=== PATIENT | female | born 1935 | race Caucasian/White ===

== ENCOUNTER 2018-04-11 15:11 | Emergency (ER) | payer MEDICARE, BC ==
[~2018-04-11] VITALS: Ht 154.9 cm; Wt 61.2 kg
[~2018-04-11 15:11] MED LIST: CELE200 PO; DIALYVITE 8001 EACH; ENOX30I SQ; ERGO50000; HYDACE5 PO; HYDACE5325 PO; ONE DAILY FOR1 EACH; OXYACE5T PO; PROM25 PO
[2018-04-11 16:00] LABS: Alanine Aminotransfer (ALT/SGP 19 U/L (12-78); Albumin, Blood 4.1 g/dL (3.4-5.0); Albumin/Globulin Ratio 1.3 (0.8-1.8); Alk Phos 96 U/L (50-136); Anion Gap 5 mmol/L (6-16); Aspartate Aminotrans (AST/SGOT 25 U/L (12-37); Bilirubin, Total 0.4 mg/dL (0.1-1.0); Blood Urea Nitrogen 14 mg/dL (8-24); Bun/Creatinine Ratio 16.2 (12.0-20.0); CO2, Blood 26 mmol/L (21-32); Calcium, Blood 9.2 mg/dL (8.5-10.1); Chloride, Blood 106 mmol/L (98-108); Creatinine, Blood 0.87 mg/dL (0.40-1.00); Globulin, Blood 3.2 g/dL (2.2-4.0); Glomerular Filtration Rate >60 (60-); Glucose, Blood 95 mg/dL (70-99); Potassium, Blood 4.5 mmol/L (3.5-5.5); Sodium, Blood 137 mmol/L (136-145); Total Protein, Blood 7.3 g/dL (6.4-8.2); Troponin I <0.015 ng/mL (0.000-0.040)
[2018-04-11 16:39] LABS: BASOPHILS ABSOLUTE AUTO 0.01 K/mm3 (0.00-0.23); BASOPHILS PERCENT AUTO 0 % (0-2); EOSINOPHILS ABSOLUTE AUTO 0.06 K/mm3 (0.00-0.68); EOSINOPHILS PERCENT AUTO 2 % (0-6); Hematocrit 42.3 % (33.0-51.0); Hemoglobin 13.3 g/dL (11.5-16.0); IMMATURE GRAN ABSOLUTE AUTO 0.02 K/mm3 (0.00-0.10); IMMATURE GRAN PERCENT AUTO 1 % (0-1); LYMPHOCYTES ABSOLUTE AUTO 0.95 K/mm3 (0.84-5.20); LYMPHOCYTES PERCENT AUTO 26 % (21-46); MONOCYTES ABSOLUTE AUTO 0.15 K/mm3 (0.16-1.47); MONOCYTES PERCENT AUTO 4 % (4-13); Mean Corpuscular HGB Conc 31.4 g/dL (31.5-36.5); Mean Corpuscular Volume 96 fL (80-100); NEUTROPHILS ABSOLUTE AUTO 2.42 K/mm3 (1.96-9.15); NEUTROPHILS PERCENT AUTO 67 % (41-73); RDW Coefficient Variation 12.8 % (11.7-14.2); RDW Standard Deviation 45.2 fL (35.1-46.3); Red Blood Cell Count 4.43 M/mm3 (3.80-5.20); White Blood Cell Count 3.61 K/mm3 (4.00-11.30)
[2018-04-11 16:45] LABS: Mean Platelet Volume 12.5 fL (9.1-12.4); Platelet Count 62 K/mm3 (150-400)
== END 2018-04-11 18:12 | disposition home or self-care (01) ==
LOC: ER 15:11
PROVIDERS: Emergency Medicine
DX: R55 Syncope and collapse (principal); S40.012A Contusion of left shoulder, initial encounter; S80.02XA Contusion of left knee, initial encounter; W18.30XA Fall on same level, unspecified, initial encounter; Z88.5 Allergy status to narcotic agent; Z79.899 Other long term (current) drug therapy; Z87.891 Personal history of nicotine dependence
CPT/HCPCS: 36415; 71046; 73030; 73564; 80053; 84484; 85025; 93005; 93010; 96374; 99284-25; J2405

== ENCOUNTER 2020-11-13 15:40 | Emergency (ER) | payer MEDICARE, BC ==
[~2020-11-13] VITALS: Ht 157.5 cm; Wt 58.1 kg
[2020-11-13] MEDS ORDERED: ONDA4 PO (16:35)
== END 2020-11-13 17:44 | disposition home or self-care (01) ==
LOC: ER 15:40
DX: U07.1 COVID-19 (principal); Z87.891 Personal history of nicotine dependence; Z88.5 Allergy status to narcotic agent; Z79.899 Other long term (current) drug therapy
CPT/HCPCS: 96374; 99283-25; J2405; J7030; M0243; Q0243

== ENCOUNTER 2020-11-15 00:06 | Emergency (ER) | payer MEDICARE, BC ==
[~2020-11-15] VITALS: Ht 157.5 cm; Wt 58.1 kg
[~2020-11-15 00:06] MED LIST changes: +ONDA4 PO
[2020-11-15] MEDS ORDERED: AZIT250 PO (00:36)
[2020-11-15] MEDS ORDERED: ONDA4ODT MM (00:37)
[2020-11-15] MEDS ORDERED: IVERMECTIN3 MG PO (00:37)
[2020-11-15 00:55] LABS: Calcium, Ionized (POC) 1.14 mmol/L (1.10-1.46); Chloride (POC) 80 mmol/L (98-108); Creatinine (POC) 0.5 mg/dL (0.6-1.0); Glucose (ISTAT POC) 88 mg/dL (70-99); Hemoglobin (POC) 13.3 g/dL (12.0-16.0); Potassium (POC) 3.6 mmol/L (3.5-5.5); Sodium (POC) 114 mmol/L (135-148); Total CO2 (POC) 20 mmol/L (21-32)
== END 2020-11-15 01:19 | disposition home or self-care (01) ==
LOC: ER 00:06
PROVIDERS: Emergency Medicine
DX: U07.1 COVID-19 (principal); Z88.5 Allergy status to narcotic agent; Z87.891 Personal history of nicotine dependence
CPT/HCPCS: 36415; 80047; 85014; 93005; 93010; 99283-25

== ENCOUNTER 2023-04-11 12:02 | Day surgery (SDC) | payer MEDICARE, BC ==
[~2023-04-11] VITALS: Ht 157.5 cm; Wt 59.0 kg
[~2023-04-11 12:02] MED LIST changes: +AZIT250 PO; +IVERMECTIN3 MG PO; +ONDA4ODT MM
[2023-04-11 14:33] VITALS: BP 105/61
== END 2023-04-11 14:25 | disposition home or self-care (01) ==
LOC: ORSCSDS 12:02
PROVIDERS: Specialist
PROC: 0D757ZZ Dilation of Esophagus, Via Natural or Artificial Opening (ICD-10-PCS; 2023-04-11)
PROC: 0DJ08ZZ Inspection of Upper Intestinal Tract, Via Natural or Artificial Opening Endoscopic (ICD-10-PCS; principal; 2023-04-11 13:15)
DX: R13.10 Dysphagia, unspecified (principal)
CPT/HCPCS: J0461; J2001; J2405; J2704; J7120; Q9968